=== PATIENT | male | born 1970 | race Caucasian/White ===

== ENCOUNTER 2017-01-06 14:10 | Outpatient (CLI) ==
[2017-01-06 14:29] LABS: BASOPHILS # (AUTO) 0.1 K/uL (0-0.2); BASOPHILS % (AUTO) 0.9 % (0.0-3.0); EOSINOPHILS # (AUTO) 0.2 K/ul (0.0-0.7); EOSINOPHILS % (AUTO) 2.4 % (0.0-7.0); HEMATOCRIT 43.8 % (42.0-52.0); HEMOGLOBIN 14.8 g/dl (14.0-18.0); IMMATURE GRANULOCYTE % (AUTO) 0.3 % (0.0-5.0); LYMPHOCYTES # (AUTO) 2.3 K/uL (0.60-3.4); LYMPHOCYTES % (AUTO) 34.7 (10.0-50.0); MEAN CORPUSCULAR HEMOGLOBIN 31.2 pg (27.0-31.0); MEAN CORPUSCULAR HGB CONC 33.8 (31.8-35.4); MEAN CORPUSCULAR VOLUME 92.2 fl (80.0-94.0); MONOCYTES # (AUTO) 0.4 K/uL (0.4-2.0); MONOCYTES % (AUTO) 6.5 (0-10); NEUTROPHILS # (AUTO) 3.7 K/ul (2.0-6.9); NEUTROPHILS % (AUTO) 55.2; PLATELET COUNT 264 10^3/uL (140-440); RED BLOOD COUNT 4.75 10^6/ul (4.70-6.10); WHITE BLOOD COUNT 6.62 K/ul (4.2-10.2)
[2017-01-06 15:14] LABS: ALBUMIN 3.5 g/dL (3.4-5.0); ALBUMIN/GLOBULIN RATIO 0.92; ANION GAP 16.4; BILIRUBIN,TOTAL 0.44 mg/dL (0.00-1.20); BUN/CREATININE RATIO 13.18; CALCIUM 9.5 mg/dL (8.2-10.2); CHOL/HDL RATIO 4.5 (4.5-6.4); CREATININE 0.91 mg/dL (0.60-1.10); POTASSIUM 4.4 mmol/L (3.5-5.1); TOTAL PROTEIN 7.3 g/dL (6.4-8.2)
== END 2017-01-06 14:11 | disposition home or self-care (01) ==
LOC: LAB 14:10
PROVIDERS: ATTEND Emergency Medicine
DX: I10 Essential (primary) hypertension (principal); E66.9 Obesity, unspecified; Z12.5 Encounter for screening for malignant neoplasm of prostate
CPT/HCPCS: 36415; 80053; 80061; 84443; 85025

== ENCOUNTER 2017-05-05 07:38 | Outpatient (CLI) ==
--- NOTE | 2017-05-05 08:48 | DI ---
EXAM: Lumbar spine three views HISTORY: Lumbar region, radiculopathy FINDINGS: Compared to 05/14/2012. Subtle scoliosis convex to the left. There is mild bilateral fitz articular sclerosis of the sacroiliac joints consistent with sacroiliitis. At least mild facet arthr opathy mid spine through S1. Diffuse mild degenerative endplate changes. No spondylolisthesis, frac ture or loss of vertebral body height. IMPRESSION: At least mild diffuse degenerative changes have become noticeable since prior study.
--- NOTE | 2017-05-05 09:04 | DI ---
EXAM: Thoracic spine three view HISTORY: Thoracic spine pain. FINDINGS: No comparison. There is subtle scoliosis convex to the left at the lower thoracic level. Lateral views reveal normal alignment and vertebral body height. No fracture. Subtle degenerate end plate changes lower spine. Incidental note of stabilization hardware lower cervical spine. IMPRESSION: Mild scoliosis. Mild degenerative changes.
== END 2017-05-05 07:39 | disposition home or self-care (01) ==
LOC: RAD 07:38
PROVIDERS: ATTEND Emergency Medicine
DX: M47.26 Other spondylosis with radiculopathy, lumbar region (principal); M54.6 Pain in thoracic spine

== ENCOUNTER 2018-02-28 09:22 | Outpatient (CLI) | END 2018-02-28 09:23 | disposition home or self-care (01) | LOC: RHC-LAB 09:22 | PROVIDERS: ATTEND Nurse Practitioner Family | DX: I10 Essential (primary) hypertension (principal); E66.01 Morbid (severe) obesity due to excess calories | CPT/HCPCS: 36415; 80053; 80061; 84443; 85025 ==